=== PATIENT | male | born 1995 | race Caucasian/White ===

== ENCOUNTER 2017-12-05 13:31 | Emergency (ER) | payer BC ==
[2017-12-05 13:35] VITALS: BP 127/72
--- NOTE | 2017-12-05 13:50 | EDPHY ---
HPI/HX/ROS/PE/MDM Narrative: CHIEF COMPLAINT: Left knee injury HPI: The patient is a 22 y/o male arriving with his girlfriend complaining of a left knee injury secondary to a fall 2 days ago. He was playing basketball and while up in the air he was body-checked and landed hard on his left knee. He had immediate pain at the side of impact, just below his knee, but continued to play basketball. He developed swelling and difficulty walking due to pain. 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 This morning after walking only a [place] the [employer] the pain became too severe so he came to the ED for evaluation. He denies other injuries, head strike, loss of consciousness, weakness, or paresthesias. He is normally healthy. REVIEW OF SYSTEMS: Aside from elements discussed in the HPI, a comprehensive 10-point review of systems was reviewed and is negative. PMH: Denies SOCIAL HISTORY: Girlfriend at bedside. Employed as canvasser. PHYSICAL EXAM: General:Patient is alert, in no acute distress. ENT:Eyes are normal to inspection. ENT inspection normal. Neck: Normal inspection. Full range of motion. Respiratory:No respiratory distress. Cardiovascular: Strong peripheral pulses. Normal cap refill. Skin: Normal color. No rash. Warm and dry. Extremities: Tenderness underlying abrasion over his left tibial tuberosity, otherwise normal appearance. Full range of motion. Neuro: Oriented x3. Nonfocal. ED Course: This is a healthy 22 y/o male who presents with pain below his left knee secondary to a fall while playing basketball 2 days ago. He has an abrasion and tenderness over his left tibial tuberosity. He is neurovascularly intact. No other trauma noted. Plan for knee x-ray series. X-ray is negative for fracture. Patient will be discharged with standard contusion and abrasion care and follow up instructions. Return precautions discussed. He is comfortable with this plan. - Data Points Imaging Results: Imaging Impressions Knee X-Ray 12/05/17 13:47 Impression: 1. There is no acute osseous abnormality. 2. Suspect tiny suprapatellar joint effusion. If there is further clinical concern regarding the patient's knee pain, MR imaging could be considered. Imaging: I viewed and interpreted images myself General Time Seen by Provider: 12/05/17 13:39 Initial Vital Signs: Initial Vital Signs Temperature (C) 36.6 C 12/05/17 13:34 Heart Rate 80 12/05/17 13:34 Respiratory Rate 18 12/05/17 13:34 Blood Pressure 127/72 H 12/05/17 13:34 O2 Sat (%) 95 12/05/17 13:34 O2 Delivery Mode Room Air Allergies/Adverse Reactions: No Known Allergies Allergy (Verified 12/05/17 13:32) Home Medications: Medication Instructions Recorded Trazodone HCl 12/20/15 Departure - Departure Disposition: Home, Routine, Self-Care Clinical Impression: Abrasion Contusion Qualifiers: Encounter type: initial encounter Contusion area: lower leg Laterality: left Qualified Code(s): S80.12XA - Contusion of left lower leg, initial encounter Condition: Good Instructions: Contusion in Adults (ED), Abrasion (ED) Additional Instructions: 1. Take 600mg ibuprofen every 8 hours for pain and inflammation over the next few days. 2. Apply ice intermittently to sore areas if helpful for pain. 3. Follow up with orthopedist for unimproved symptoms over the next week. 4. Return to the ED for worsening of condition. Referrals: Nadeem Forman MD [Medical Doctor] - As per Instructions Report Scribed for: Bobby Henry Report Scribed by: Carla Quinonez Date of Report: 12/05/17 Time of Report: 13:50 Physician Review and Approval Statement: Portions of this note were transcribed by an ED scribe. I personally performed the history, physical exam, and medical decision making; and confirm the accuracy of the information in the transcribed note.
== END 2017-12-05 14:33 | disposition home or self-care (01) ==
DX: S80.12XA Contusion of left lower leg, initial encounter (principal); S80.812A Abrasion, left lower leg, initial encounter; X58.XXXA Exposure to other specified factors, initial encounter; Y99.8 Other external cause status; Y93.67 Activity, basketball